=== PATIENT | male | born 1980 | race Hispanic/Latino ===

== ENCOUNTER 2022-05-06 23:42 | Emergency (ER) | payer OTHER ==
[2022-05-07] MEDS ORDERED: MORPHINE 4 MG/ML SYR ONE ×3 (00:32→08:24)
[2022-05-07] MEDS ORDERED: ONDANSETRON 4 MG/2 ML VIAL ONE ×3 (00:32→08:24)
[2022-05-07] MEDS ORDERED: FAMOTIDINE 20 MG/2 ML VIAL IV ONE (00:32)
[2022-05-07] MEDS ORDERED: NA CHLORIDE 0.9% 500 ML ONE (00:32)
[2022-05-07 00:47] LABS: Absolute Lymphocytes (CBC) 2.3 K/uL (0.7-4.9); Hematocrit 44.3 % (39.6-49.0); Lymphocytes % 23.5 % (15.3-44.8); MPV 10.2 fL (7.6-11.3); RBC Red Blood Cell Count 5.05 M/uL (4.33-5.43)
[2022-05-07 00:56] LABS: Bilirubin Total 0.9 mg/dL (0.2-1.0); Potassium 3.6 mmol/L (3.5-5.1); Protein, Total 7.5 g/dL (6.4-8.2)
--- NOTE | 2022-05-07 02:11 | ER ---
Nurse's Notes [facility] Name: Wilmer Lauren Jr Age: 41 yrs Sex: Male : 1980 Arrival Date: 05/06/2022 Time: 23:47 Bed 7 Private MD: Diagnosis: GI Bleed/ Gastrointestinal hemorrhage, unspecified;Upper abdominal pain, unspecified Presentation: 05/06 23:47 Chief complaint: Patient states: "Today I started coughing up blood. I feel real weak vc1 and dizzy. My stomach hurts in the middle and to the right. The left side of my throat hurts and I think I have blood in my stool.". Coronavirus screen: Vaccine status: Patient reports being unvaccinated. At this time, the client does not indicate any symptoms associated with coronavirus-19. Ebola Screen: No symptoms or risks identified at this time. Initial Sepsis Screen: Does the patient meet any 2 criteria? No. Patient's initial sepsis screen is negative. Does the patient have a suspected source of infection? No. Patient's initial sepsis screen is negative. Risk Assessment: Do you want to hurt yourself or someone else? Patient reports no desire to harm self or others. Onset of symptoms was May 06, 2022. 23:47 Method Of Arrival: Other vc1 23:47 Acuity: SAM 3 vc1 Triage Assessment: 23:51 General: Appears in no apparent distress. uncomfortable, Behavior is calm, cooperative, vc1 appropriate for age. Pain: Complains of pain in umbilical area Pain radiates to right lower quadrant Pain currently is 10 out of 10 on a pain scale. EENT: No deficits noted. EENT:. Neuro: Level of Consciousness is awake, alert, obeys commands, Oriented to person, place, time, situation, Appropriate for age. Cardiovascular: Denies chest pain, Capillary refill < 3 seconds Patient's skin is warm and dry. Respiratory: Airway is patent Respiratory effort is even, unlabored, Respiratory pattern is regular, symmetrical. GI: Abdomen is round Reports lower abdominal pain, bloody stool, epigastric pain, vomiting, blood in vomit. : No deficits noted. Derm: No deficits noted. Musculoskeletal: No deficits noted. Historical: - Allergies: 23:51 No Known Allergies; vc1 - Home Meds: 23:51 None [Active]; vc1 - PMHx: 23:51 Hypertensive disorder; Diabetes mellitus; vc1 - PSHx: 23:51 None; vc1 - Immunization history:: Adult Immunizations up to date, Client reports having NOT received the Covid vaccine. Flu vaccine is not up to date. - Social history:: Smoking status: unknown. Screenin:53 Abuse screen: Denies threats or abuse. Nutritional screening: No deficits noted. vc1 Tuberculosis screening: No symptoms or risk factors identified. Fall Risk None identified. Assessment: 23:54 Reassessment: See triage assessment. vc1 05/07 01:00 Reassessment: Patient and/or family updated on plan of care and expected duration. Pain vc1 level reassessed. Patient is alert, oriented x 3, equal unlabored respirations, skin warm/dry/pink. 02:00 Reassessment: No changes from previously documented assessment. Patient and/or family vc1 updated on plan of care and expected duration. Pain level reassessed. Patient is alert, oriented x 3, equal unlabored respirations, skin warm/dry/pink. 03:00 Reassessment: No changes from previously documented assessment. Patient and/or family vc1 updated on plan of care and expected duration. Pain level reassessed. Patient is alert, oriented x 3, equal unlabored respirations, skin warm/dry/pink. 04:00 Reassessment: No changes from previously documented assessment. Patient and/or family vc1 updated on plan of care and expected duration. Pain level reassessed. Patient is alert, oriented x 3, equal unlabored respirations, skin warm/dry/pink. 04:58 Reassessment: No changes from previously documented assessment. Patient and/or family vc1 updated on plan of care and expected duration. Pain level reassessed. Patient is alert, oriented x 3, equal unlabored respirations, skin warm/dry/pink. 05:02 Reassessment: report given to Treva STAPLES for [facility]. bb 06:19 Reassessment: Patient and/or family updated on plan of care and expected duration. Pain vc1 level reassessed. Patient is alert, oriented x 3, equal unlabored respirations, skin warm/dry/pink. Patient states symptoms have improved. 06:53 Reassessment: Patient and/or family updated on plan of care and expected duration. Pain vc1 level reassessed. Patient is alert, oriented x 3, equal unlabored respirations, skin warm/dry/pink. Patient states symptoms have improved. 07:05 Reassessment: Patient is alert, oriented x 3, equal unlabored respirations, skin aa5 warm/dry/pink. Awaiting EMS for transfer, ETA 0800, pt notified of wait time. [facility] guards at bedside and outside of room. . Pain: Complains of pain in abdomen Pain currently is 6 out of 10 on a pain scale. 08:26 Reassessment: Patient is alert, oriented x 3, equal unlabored respirations, skin aa5 warm/dry/pink. Vital Signs: 05/06 23:47 BP 111 / 90; Pulse 68; Resp 17 S; Temp 98.7(O); Pulse Ox 95% on R/A; Weight 95.25 kg; vc1 Height 5 ft. 9 in. (175.26 cm); Pain 10/10; 05/07 01:00 BP 106 / 68; Pulse 55; Resp 18; Pulse Ox 95% on R/A; Pain 3/10; vc1 03:00 BP 112 / 78; Pulse 58; Resp 18; Pulse Ox 96% on R/A; vc1 04:58 BP 116 / 80; Pulse 52; Resp 17; Temp 98.4(O); Pulse Ox 95% ; vc1 05:45 BP 122 / 77; Pulse 58; Resp 17; Pulse Ox 96% ; vc1 06:30 BP 113 / 79; Pulse 58; Resp 16; Pulse Ox 97% ; Pain 6/10; vc1 06:30 BP 113 / 79; Pulse 58; Resp 17; Pulse Ox 97% on R/A; vc1 08:15 BP 121 / 88; Pulse 56; Resp 16 S; Temp 98.0(TE); Pulse Ox 97% on R/A; Pain 6/10; aa5 05/06 23:47 Body Mass Index 31.01 (95.25 kg, 175.26 cm) vc1 ED Course: 05/06 23:47 Patient arrived in ED. vc1 23:51 Triage completed. vc1 23:51 Arm band placed on right wrist. vc1 23:54 Patient has correct armband on for positive identification. Bed in low position. Call vc1 light in reach. Pulse ox on. NIBP on. 23:55 Jose Medina MD is Attending Physician. kdr 05/07 00:10 Inserted saline lock: 20 gauge in right forearm, using aseptic technique. vc1 01:26 CT Abd/Pelvis - IV Contrast Only In Process Unspecified. EDMS 02:21 COVID-19 SARS RT PCR (Document "Date of Onset" if Symptomatic) Sent. oe 03:56 initiated a transfer with Deborah from [facility]. mw2 04:[address] Medina with Dr. Weaver from [facility]. mw2 04:48 administrative approval given by Deborah Paiz/ patient has been accepted to [address] 744 bed 2/ Dr. Weaver accepted the patient in transfer. 04:57 Gloria Rice, JHOAN is Primary Nurse. vc1 05:00 waiting on [facility] to find transportation. mw2 06:02 Transport ETA 0800 am. mw2 08:26 No provider procedures requiring assistance completed. Patient transferred, IV remains aa5 in place. Administered Medications: 00:30 Drug: Pepcid (famotidine) 20 mg Route: IVP; Site: right forearm; vc1 02:00 Follow up: Response: No adverse reaction vc1 00:30 Drug: NS 0.9% 500 ml Route: IV; Rate: bolus; Site: right forearm; vc1 01:00 Follow up: IV Status: Completed infusion; IV Intake: 500ml vc1 00:32 Drug: Zofran (Ondansetron) 4 mg Route: IVP; Site: right forearm; vc1 01:00 Follow up: Response: No adverse reaction; Marked relief of symptoms; Nausea is decreasedvc1 00:35 Drug: morphine 4 mg Route: IVP; Site: right forearm; vc1 01:00 Follow up: BP 106 / 68; Pulse 55 bpm; Resp 18 bpm; Pulse Ox 95% RA; Pain 3/10 Adult; vc1 Response: No adverse reaction; Pain is decreased; RASS: Alert and Calm (0) 05:11 Drug: morphine 4 mg Route: IVP; Site: left forearm; vc1 06:30 Follow up: BP 113 / 79; Pulse 58 bpm; Resp 16 bpm; Pulse Ox 97% ; Pain 6/10 Adult; vc1 Response: No adverse reaction; Marked relief of symptoms; Pain is decreased 05:11 Drug: Zofran (Ondansetron) 4 mg Route: IVP; Site: right forearm; vc1 06:54 Follow up: Response: No adverse reaction; Marked relief of symptoms; Nausea is decreasedvc1 08:20 Drug: Zofran (Ondansetron) 4 mg Route: IVP; Site: right forearm; aa5 08:26 Follow up: Response: No adverse reaction aa5 08:23 Drug: morphine 4 mg Route: IVP; Infused Over: 2 mins; Site: right forearm; aa5 08:26 Follow up: Response: No adverse reaction aa5 Intake: 01:00 IV: 500ml; Total: 500ml. vc1 Outcome: 02:10 ER care complete, transfer ordered by . kdr 08:25 Transferred by ground EMS to [facility], Transfer form aa5 completed. X-rays sent w/ patient. Note: Report given to AM PM EMS service 08:25 Instructed on the need for transfer. 08:28 Patient left the ED. aa5 Signatures: Dispatcher [employer] EDMS Jose Medina MD MD kdr Ballard, Brenda, RN RN bb Jodi Snider, RN RN aa5 [employer] mw2 Gloria Rice RN RN vc1
--- NOTE | 2022-05-07 02:11 | EDPHYS ---
Physician Documentation [facility] Name: Wilmer Lauren Jr Age: 41 yrs Sex: Male : 1980 Arrival Date: 05/06/2022 Time: 23:47 Bed 7 Private MD: ED Physician Jose Medina HPI: 05/07 02:10 This 41 yrs old Male presents to ER via Other with complaints of Abdominal kdr pain/right upper quadrant pain, hematochezia. 02:10 The patient presents to the emergency department vomiting blood, a small amount, bright kdr red, with multiple such episodes, with rectal bleeding, a small amount, bright red blood with bowel movement, melena. Onset: The symptoms/episode began/occurred 24 hour(s) ago. Abdominal pain: described as constant, vague,\\E\\ waxing and waning, located in the right upper quadrant. Modifying factors: The symptoms are alleviated by nothing, the symptoms are aggravated by food, movement. Associated signs and symptoms: Pertinent positives: vomiting. Severity of symptoms: At their worst the symptoms were mild in the emergency department the symptoms are unchanged. The patient has not experienced similar symptoms in the past. The patient has not recently seen a physician. Historical: - Allergies: 05/06 23:51 No Known Allergies; vc1 - Home Meds: 23:51 None [Active]; vc1 - PMHx: 23:51 Hypertensive disorder; Diabetes mellitus; vc1 - PSHx: 23:51 None; vc1 - Immunization history:: Adult Immunizations up to date, Client reports having NOT received the Covid vaccine. Flu vaccine is not up to date. - Social history:: Smoking status: unknown. ROS: 05/07 02:10 Constitutional: Negative for fever, chills, and weight loss, Eyes: Negative for injury, kdr pain, redness, and discharge, ENT: Negative for injury, pain, and discharge, Neck: Negative for injury, pain, and swelling, Cardiovascular: Negative for chest pain, palpitations, and edema, Respiratory: Negative for shortness of breath, cough, wheezing, and pleuritic chest pain, Back: Negative for injury and pain, : Negative for injury, bleeding, discharge, and swelling, MS/Extremity: Negative for injury and deformity, Skin: Negative for injury, rash, and discoloration, Neuro: Negative for headache, weakness, numbness, tingling, and seizure activity. Psych: Negative for depression, anxiety, suicide ideation, homicidal ideation, and hallucinations, Allergy/Immunology: Negative for hives, rash, and allergies, Endocrine: Negative for neck swelling, polydipsia, polyuria, polyphagia, and marked weight changes, Hematologic/Lymphatic: Negative for swollen nodes, abnormal bleeding, and unusual bruising. Abdomen/GI: Positive for abdominal pain, nausea and vomiting, abdominal cramps, rectal bleeding. Exam: 02:10 Constitutional: This is a well developed, well nourished patient who is awake, alert, kdr and in no acute distress. Head/Face: Normocephalic, atraumatic. Eyes: Pupils equal round and reactive to light, extra-ocular motions intact. Lids and lashes normal. Conjunctiva and sclera are non-icteric and not injected. Cornea within normal limits. Periorbital areas with no swelling, redness, or edema. Neck: Trachea midline, no thyromegaly or masses palpated, and no cervical lymphadenopathy. Supple, full range of motion without nuchal rigidity, or vertebral point tenderness. No Meningismus. Chest/axilla: Normal chest wall appearance and motion. Nontender with no deformity. No lesions are appreciated. Cardiovascular: Regular rate and rhythm with a normal S1 and S2. No gallops, murmurs, or rubs. Normal PMI, no JVD. No pulse deficits. Respiratory: Lungs have equal breath sounds bilaterally, clear to auscultation and percussion. No rales, rhonchi or wheezes noted. No increased work of breathing, no retractions or nasal flaring. Back: No spinal tenderness. No costovertebral tenderness. Full range of motion. Skin: Warm, dry with normal turgor. Normal color with no rashes, no lesions, and no evidence of cellulitis. MS/ Extremity: Pulses equal, no cyanosis. Neurovascular intact. Full, normal range of motion. Neuro: Awake and alert, GCS 15, oriented to person, place, time, and situation. Cranial nerves II-XII grossly intact. Motor strength 5/5 in all extremities. Sensory grossly intact. Cerebellar exam normal. Normal gait. Psych: Awake, alert, with orientation to person, place and time. Behavior, mood, and affect are within normal limits. 02:10 Abdomen/GI: Inspection: abdomen appears normal, Bowel sounds: active, diminished, in all quadrants, Palpation: soft, mild abdominal tenderness, in the right upper quadrant, Rectal exam: Prostate: normal, rectal tone normal, Stool: guaiac positive, The guaiac was faintly positive, hemorrhoid(s), are not appreciated, mass, is not appreciated, swelling, is not appreciated, tenderness, is not appreciated, fecal impaction, is not appreciated, the exam is chaperoned by the nurse. Vital Signs: 05/06 23:47 BP 111 / 90; Pulse 68; Resp 17 S; Temp 98.7(O); Pulse Ox 95% on R/A; Weight 95.25 kg; vc1 Height 5 ft. 9 in. (175.26 cm); Pain 10/10; 05/07 01:00 BP 106 / 68; Pulse 55; Resp 18; Pulse Ox 95% on R/A; Pain 3/10; vc1 03:00 BP 112 / 78; Pulse 58; Resp 18; Pulse Ox 96% on R/A; vc1 04:58 BP 116 / 80; Pulse 52; Resp 17; Temp 98.4(O); Pulse Ox 95% ; vc1 05:45 BP 122 / 77; Pulse 58; Resp 17; Pulse Ox 96% ; vc1 06:30 BP 113 / 79; Pulse 58; Resp 16; Pulse Ox 97% ; Pain 6/10; vc1 06:30 BP 113 / 79; Pulse 58; Resp 17; Pulse Ox 97% on R/A; vc1 08:15 BP 121 / 88; Pulse 56; Resp 16 S; Temp 98.0(TE); Pulse Ox 97% on R/A; Pain 6/10; aa5 05/06 23:47 Body Mass Index 31.01 (95.25 kg, 175.26 cm) vc1 MDM: 02:10 Patient medically screened. kdr 02:10 Data reviewed: vital signs, nurses notes, lab test result(s), radiologic studies. kdr Counseling: I had a detailed discussion with the patient and/or guardian regarding: the historical points, exam findings, and any diagnostic results supporting the discharge/admit diagnosis, lab results, radiology results, the need to transfer to another facility. 05/06 23:57 Order name: CBC with Diff; Complete Time: 00:58 kdr 05/06 23:57 Order name: CMP; Complete Time: 00:58 kdr 05/06 23:57 Order name: Lipase; Complete Time: 00:58 kdr 05/06 23:57 Order name: Type And Screen; Complete Time: 01:57 kdr 05/07 02:10 Order name: COVID-19 SARS RT PCR (Document "Date of Onset" if Symptomatic); Complete mw2 Time: 03:53 05/07 04:47 Order name: ABO/RH no charge EDMS 05/06 23:57 Order name: CT Abd/Pelvis - IV Contrast Only kdr 05/06 23:57 Order name: IV Saline Lock; Complete Time: 00:19 kdr 05/06 23:57 Order name: Labs collected and sent; Complete Time: 00:19 kdr Administered Medications: 00:30 Drug: Pepcid (famotidine) 20 mg Route: IVP; Site: right forearm; vc1 02:00 Follow up: Response: No adverse reaction vc1 00:30 Drug: NS 0.9% 500 ml Route: IV; Rate: bolus; Site: right forearm; vc1 01:00 Follow up: IV Status: Completed infusion; IV Intake: 500ml vc1 00:32 Drug: Zofran (Ondansetron) 4 mg Route: IVP; Site: right forearm; vc1 01:00 Follow up: Response: No adverse reaction; Marked relief of symptoms; Nausea is decreasedvc1 00:35 Drug: morphine 4 mg Route: IVP; Site: right forearm; vc1 01:00 Follow up: BP 106 / 68; Pulse 55 bpm; Resp 18 bpm; Pulse Ox 95% RA; Pain 3/10 Adult; vc1 Response: No adverse reaction; Pain is decreased; RASS: Alert and Calm (0) 05:11 Drug: morphine 4 mg Route: IVP; Site: left forearm; vc1 06:30 Follow up: BP 113 / 79; Pulse 58 bpm; Resp 16 bpm; Pulse Ox 97% ; Pain 6/10 Adult; vc1 Response: No adverse reaction; Marked relief of symptoms; Pain is decreased 05:11 Drug: Zofran (Ondansetron) 4 mg Route: IVP; Site: right forearm; vc1 06:54 Follow up: Response: No adverse reaction; Marked relief of symptoms; Nausea is decreasedvc1 08:20 Drug: Zofran (Ondansetron) 4 mg Route: IVP; Site: right forearm; aa5 08:26 Follow up: Response: No adverse reaction aa5 08:23 Drug: morphine 4 mg Route: IVP; Infused Over: 2 mins; Site: right forearm; aa5 08:26 Follow up: Response: No adverse reaction aa5 Disposition Summary: 05/07/22 02:10 Transfer Ordered Transfer Location: [facility] kdr Reason: Higher level of care kdr Condition: Fair kdr Problem: new kdr Symptoms: are unchanged kdr Accepting Physician: [facility] Bruce Mcelroy(05/07/22 08:28) aa5 Diagnosis - GI Bleed/ Gastrointestinal hemorrhage, unspecified kdr - Upper abdominal pain, unspecified kdr Forms: - Medication Reconciliation Form kdr - SBAR form kdr Signatures: Dispatcher [employer] EDMS Jose Medina MD MD kdr Jodi Snider RN RN aa5 Gloria Rice RN RN vc1 Corrections: (The following items were deleted from the chart) 02:10 02:10 [facility] kdr kdr 04:25 02:10 [facility] kdr kdr 08:28 04:25 [facility] Bruce Mcelroy kdr aa5
[2022-05-07 08:50] VITALS: O2SAT 97
[2022-05-07 08:52] VITALS: BP 121/88; TEMP 98
--- NOTE | 2022-05-07 13:48 | RAD REPORT ---
EXAM DESCRIPTION: CT - Abdomen Pelvis W Contrast - 05/07/2022 6:35 am CLINICAL HISTORY: 41 years, Male, GI bleed COMPARISON: None. TECHNIQUE: Contrast-enhanced images of the abdomen and pelvis were performed utilizing 5 mm slice th ickness at 5 mm interval reconstruction from the lung bases to the ischial tuberosities after the adm inistration IV contrast. In addition multiplanar reformats in the coronal and sagittal plane were obtained and reviewed. This exam was performed according to our departmental dose-optimization protocol, which includes auto mated exposure control, adjustment of the mA and/or kV according to patient size and/or use of iterat noemi reconstruction technique. FINDINGS: The lung bases demonstrate to be clear. There is a small hiatal hernia. The liver demonstrate decreased attenuation corresponding to fatty infiltration. Otherwise liver, gal lbladder, pancreas, spleen and adrenal glands demonstrate to be unremarkable, no focal lesions are no ml. The kidneys demonstrate normal uptake of contrast media. No evidence for nephrolithiasis and/or hydro nephrosis. Grossly the unopacified stomach, small bowel and large bowel demonstrate to be within normal limits. There is no evidence for bowel dilatation/or free air. The appendix is normal. There is diverticulo sis within the left site colon. The urinary bladder demonstrate to be unremarkable. The prostate gland is normal. The aorta demon strate to be normal. There is no retroperitoneal lymphadenopathy. There is no ascites. The rest of the soft tissue and bony structures are within normal limits. IMPRESSION: No acute intra-abdominal process. Small hiatal hernia. Fatty infiltration of the liver. Diverticulosis with no evidence for diverticulitis. Electronically signed by: Lencho Pickett MD 05/07/2022 1:40 AM CDT Due to temporary technical issues with the PACS/Fluency reporting system, reports are being signed by the in house radiologist without review as a courtesy to ensure prompt reporting. The interpreting r adiologist is fully responsible for the content of the report.
== END 2022-05-07 08:28 | disposition short-term general hospital (02) ==
LOC: ER 23:42
DX: K92.2 Gastrointestinal hemorrhage, unspecified (principal); R10.10 Upper abdominal pain, unspecified; R11.2 Nausea with vomiting, unspecified; E11.9 Type 2 diabetes mellitus without complications; I10 Essential (primary) hypertension; Z20.822 Contact with and (suspected) exposure to COVID-19
CPT/HCPCS: 85025; 36415; 86900; 86850; 86901; 83690; 80053; 74177; U0003; Q9967; J2405 ×3; J3490; J7040